=== PATIENT | male | born 2000 | race Caucasian/White ===

== ENCOUNTER 2021-02-25 04:23 | Emergency (ER) | payer MEDICAID ==
[~2021-02-25] VITALS: Ht 180.3 cm; Wt 90.7 kg
[2021-02-25 04:25] VITALS: BP 142/90
--- NOTE | 2021-02-25 04:25 | NUR ---
TO BED AMBULATORY
[2021-02-25] MEDS ORDERED: KETOROLAC 60 MG/2 ML VIAL IM ONE (05:30)
[2021-02-25] MEDS ORDERED: PROCHLORPERAZINE 10 MG/2 ML VIAL IM ONE (05:30)
[2021-02-25] MEDS ORDERED: diphenhydrAMINE 50 MG/ML VIAL IM ONE (05:30)
[2021-02-25 05:53] VITALS: BP 134/72
--- NOTE | 2021-02-25 05:56 | NUR ---
PATIENT DC HOME STABLE NOT COMPLAINING OF PAIN VITALS SIGNS IN NORMAL LIMITS ALL DC INSTRUCTION GAVE AND EXPLAINE
== END 2021-02-25 05:51 | disposition home or self-care (01) ==
LOC: MED 04:23
DX: G43.909 Migraine, unspecified, not intractable, without status migrainosus (principal)
CPT/HCPCS: 70450; 96372; 99284; J0780; J1200; J1885

== ENCOUNTER 2021-03-06 03:19 | Emergency (ER) | payer MEDICAID ==
[~2021-03-06] VITALS: Ht 180.3 cm; Wt 90.7 kg
[2021-03-06 03:25] VITALS: BP 160/77
--- NOTE | 2021-03-06 03:28 | NUR ---
TO LOBBY A/W BED AMBULATORY
[2021-03-06] MEDS ORDERED: diphenhydrAMINE 50 MG/ML VIAL IVP ONE (04:00)
[2021-03-06] MEDS ORDERED: ONDANSETRON 4 MG/2 ML VIAL IVP ONE (04:00)
[2021-03-06] MEDS ORDERED: KETOROLAC 30 MG/ML VIAL IVP ONE (04:00)
[2021-03-06] MEDS ORDERED: NACL 0.9% 1,000 ML IV ONE (04:00)
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
[2021-03-06] MEDS ORDERED: IBUP-2213 PO (05:33)
[2021-03-06] MEDS ORDERED: ONDA-188 PO (05:33)
[2021-03-06 06:12] VITALS: BP 145/75
--- NOTE | 2021-03-06 06:12 | NUR ---
Patient discharged with v/s stable. Written and verbal after care instructions given and explained. Patient alert, oriented and verbalized understanding of instructions. Ambulatory with steady gait. All questions addressed prior to discharge. ID band removed. Patient advised to follow up with PMD. Rx of ibuprofen and zofran given. Patient educated on indication of medication including possible reaction and side effects. Opportunity to ask questions provided and answered.
[2021-03-07] MEDS ORDERED: ACET-9500 PO (04:52)
== END 2021-03-06 06:12 | disposition home or self-care (01) ==
LOC: MED 03:19
DX: R51.9 Headache, unspecified (principal)
CPT/HCPCS: 96361; 96374; 96375; 99284; J1200; J1885; J2405; J7030

== ENCOUNTER 2021-03-07 02:00 | Emergency (ER) | payer MEDICAID ==
[~2021-03-07] VITALS: Ht 162.6 cm; Wt 96.6 kg
[~2021-03-07 02:00] MED LIST: IBUP-2213 PO; ONDA-188 PO
[2021-03-07 02:11] VITALS: BP 153/99
[2021-03-07] MEDS ORDERED: NACL 0.9% 1,000 ML IV ONE (02:50)
[2021-03-07] MEDS ORDERED: ONDANSETRON 4 MG/2 ML VIAL IVP ONE (02:50)
[2021-03-07] MEDS ORDERED: KETOROLAC 30 MG/ML VIAL IVP ONE (02:50)
[2021-03-07] MEDS ORDERED: diphenhydrAMINE 50 MG/ML VIAL IVP ONE (02:55)
--- NOTE | 2021-03-07 03:07 | NUR ---
PT TO BED 11
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
[2021-03-07] MEDS ORDERED: ACET-9500 PO (04:52)
[2021-03-07 05:05] VITALS: BP 153/99
--- NOTE | 2021-03-07 05:06 | NUR ---
Patient discharged with v/s stable. Written and verbal after care instructions given and explained. Patient alert, oriented and verbalized understanding of instructions. Ambulatory with steady gait. All questions addressed prior to discharge. ID band removed. Patient advised to follow up with PMD. Rx of aspirin/acetaminophen/caffeine (sent) given. Patient educated on indication of medication including possible reaction and side effects. Opportunity to ask questions provided and answered.
--- NOTE | 2021-03-17 10:18 | NUR ---
LATE ENTRY- IV NORMAL SALINE DISCONTINUED AT 0506.
== END 2021-03-07 05:05 | disposition home or self-care (01) ==
LOC: MED 02:00
DX: R51.9 Headache, unspecified (principal)
CPT/HCPCS: 96361; 96374; 96375; 99284; J1200; J1885; J2405; J7030

== ENCOUNTER 2021-03-08 03:08 | Emergency (ER) | payer MEDICAID ==
[~2021-03-08] VITALS: Ht 185.4 cm; Wt 95.3 kg
[~2021-03-08 03:08] MED LIST changes: +ACET-9500 PO
[2021-03-08 03:11] VITALS: BP 186/101
--- NOTE | 2021-03-08 03:16 | NUR ---
PT TAKEN TO BED 6
--- NOTE | 2021-03-08 03:17 | NUR ---
RECEIVED IN BED 6 WITH C/O "MIGRAINE H/A "X TODAY. (+) PHOTOPHOBIA. WAS SEEN HERE RECENTLY FOR SAME COMPLAINT
[2021-03-08] MEDS ORDERED: METOCLOPRAMIDE 10 MG/2 ML INJ VIAL IVP ONE (04:05)
[2021-03-08] MEDS ORDERED: KETOROLAC 30 MG/ML VIAL IVP ONE (04:05)
[2021-03-08] MEDS ORDERED: diphenhydrAMINE 50 MG/ML VIAL IVP ONE (04:05)
[2021-03-08 04:10] VITALS: BP 186/101
[2021-03-08] MEDS ORDERED: NACL 0.9% 1,000 ML IV ONE (04:10)
--- NOTE | 2021-03-08 04:10 | NUR ---
ambulated out of er, pt eloped
== END 2021-03-08 04:10 | disposition left against medical advice (07) ==
LOC: MED 03:08
DX: R51.9 Headache, unspecified (principal); R11.0 Nausea; R53.1 Weakness; Z53.21 Procedure and treatment not carried out due to patient leaving prior to being seen by health care provider

== ENCOUNTER 2021-05-13 17:13 | Emergency (ER) | payer MEDICAID ==
[~2021-05-13] VITALS: Ht 185.4 cm; Wt 91.2 kg
[2021-05-13 17:22] VITALS: BP 137/63
--- NOTE | 2021-05-13 18:11 | NUR ---
PT SIRENA, DIGNA STRINGER MADE AWARE.
== END 2021-05-13 17:50 | disposition left against medical advice (07) ==
LOC: MED 17:13
DX: S61.221A Laceration with foreign body of left index finger without damage to nail, initial encounter (principal); Z53.21 Procedure and treatment not carried out due to patient leaving prior to being seen by health care provider; X58.XXXA Exposure to other specified factors, initial encounter; Y93.89 Activity, other specified; Y92.89 Other specified places as the place of occurrence of the external cause; Y99.8 Other external cause status